=== PATIENT | male | born 1945 | race Caucasian/White ===

== ENCOUNTER 2021-07-20 11:24 | Emergency (ER) | payer MEDICARE ==
[~2021-07-20] VITALS: Ht 172.7 cm; Wt 74.4 kg
[2021-07-20 11:38] VITALS: BP_SYST 131
[2021-07-20] MEDS ORDERED: HYDR-3917 PO (13:05)
[2021-07-20] MEDS ORDERED: IBUP-1969 PO (13:05)
[2021-07-20 13:24] VITALS: BP_SYST 131
== END 2021-07-20 13:23 | disposition home or self-care (01) ==
LOC: SED 11:24
DX: M20.011 Mallet finger of right finger(s) (principal)
CPT/HCPCS: 99283